=== PATIENT | male | born 1980 | race African-American/Black ===

== ENCOUNTER 2019-02-17 11:27 | Emergency (ER) | payer OTHER ==
[2019-02-17 11:41] VITALS: TEMP 98.4; BMI 45.1
[2019-02-17] MEDS ORDERED: ASPIRIN 81 MG CHEWABLE TABLETS PO ONE (13:16)
[2019-02-17] MEDS ORDERED: ASPIRIN 81 MG CHEWABLE TABLETS ONE (13:20)
[2019-02-17 13:40] LABS: BASO % 0.5 % (0-2.0); EOS % 2.3 % (0-4.5); HEMATOCRIT 44.9 % (35.4-49); HEMOGLOBIN 15.4 GM/dL (11.7-16.9); LYMPH % 44.3 % (8-40); MCHC 34.2 g/dl (32.0-35.9); MEAN CELL VOLUME 84.9 fl (80-96); MEAN PLT VOLUME 8.5 fl (7.5-11.1); MONO % 10.6 % (3.8-10.2); NEUT % 42.3 % (42.8-82.8); RBC 5.29 M/mm3 (4.00-5.60); RDW 14.5 % (11.9-15.9); WHITE BLOOD COUNT 6.1 K/mm3 (4.0-10.0)
[2019-02-17 13:53] LABS: PLATELET COUNT 247 K/MM3 (134-434)
[2019-02-17 13:59] LABS: ALBUMIN 4.2 g/dl (3.4-5.0); ALK PHOS 76 U/L (45-117); ANION GAP 9 MMOL/L (8-16); BILIRUBIN,TOTAL 0.6 mg/dL (0.2-1); BLOOD UREA NITROGEN 15.2 mg/dL (7-18); CALCIUM 9.1 mg/dL (8.5-10.1); CHLORIDE 101 mmol/L (98-107); CO2 33 mmol/L (21-32); CREATININE 1.3 mg/dL (0.55-1.3); GLUCOSE,RANDOM 84 mg/dL (74-106); POTASSIUM 3.1 mmol/L (3.5-5.1); SGOT/AST 30 U/L (15-37); SGPT/ALT 56 U/L (13-61); SODIUM 142 mmol/L (136-145)
--- NOTE | 2019-02-17 14:11 | PDOC ---
Documentation entered by Nadira Srinivasan SCRIBE, acting as scribe for Agusto Barboza MD. Agusto Barboza MD: This documentation has been prepared by the scribe, Nadira Srinivasan SCRIBE, under my direction and personally reviewed by me in its entirety. I confirm that the documentation accurately reflects all work, treatment, procedures, and medical decision making performed by me. History of Present Illness - General Chief Complaint: Chest Pain Stated Complaint: CHEST DISCOMFORT Time Seen by Provider: 02/17/19 12:20 History Source: Patient Exam Limitations: No Limitations - History of Present Illness Initial Comments: 02/17/19 13:39 The patient is a 38-year-old male, with a past medical history of HTN, who presents to the ED with chest pain that began this morning at 4:30 AM. The pain woke the patient up from his sleep. It is located in the midsternal region and he describes it as intermittent, sharp in sensation, nonradiating, nonpleuritic. This episode lasted for seconds and the patient was able to fall back to sleep. While on his way to [employer] at 8:45 AM he developed the pain again. The pain lasted for approximately 2 hours before resolving on its own, which prompted the patient to visit the ED. He reports that he recently began to walk more often and starting taking a swimming class, but denies feeling chest pain during those activities. He has never experienced this pain in the past. The patient denies fevers, chills, nausea, vomiting, diarrhea, or abdominal pain. Denies any palpitations or shortness of breath. Denies any weakness, dizziness, or changes in strength or sensation. Denies any lower extremity swelling or recent travel. Allergies: NKA Social History: Reports smoking 3 cigars per week and social drinking. Denies any drug use. Surgical History: None reported. Family History: Mother - prediabetic, father from renal failure, grandmother from an DE. PCP: Dr. Haris Rojas Past History - Past Medical History Allergies/Adverse Reactions: Allergies Allergy/AdvReac Type Severity Reaction Status Date / Time No Known Allergies Allergy Verified 02/17/19 11:41 Home Medications: Ambulatory Orders Amlodipine Besylate 10 mg PO DAILY 03/17/16 Hydrochlorothiazide [Hctz -] 25 mg PO DAILY 03/17/16 Metoprolol Tartrate [Lopressor] 0 mg PO DAILY 02/17/19 Potassium 0 mg PO 02/17/19 COPD: No HTN: Yes - Immunization History Td Vaccination: Yes TDAP Vaccination: Yes Immunization Up to Date: Yes - Suicide/Smoking/Psychosocial Hx Smoking History: Current some day smoker Have you smoked in the past 12 months: Yes Number of Cigarettes Smoked Daily: 0 Cigars Per Day: 1 Information on smoking cessation initiated: No Hx Alcohol Use: Yes Substance Use Type: None Review of Systems - Review of Systems Able to Perform ROS?: Yes Comments:: 02/17/19 13:40 CONSTITUTIONAL: No reported: Fever, Chills, Diaphoresis, Generalized Weakness, Malaise, Loss of Appetite HEENT: No reported: Rhinorrhea, Nasal Congestion, Throat Pain, Throat Swelling, Difficulty Swallowing, Mouth Swelling, Ear Pain, Eye Pain, Visual Changes CARDIOVASCULAR: (+)Chest pain. No reported: Syncope, Palpitations, Irregular Heart Rate, Lightheadedness, Peripheral Edema RESPIRATORY: No reported: Cough, Shortness of Breath, SOB with Exertion, Orthopnea, Wheezing , Stridor, Hemoptysis GASTROINTESTINAL: No reported: Abdominal pain, Abdominal Distension, Nausea, Vomiting, Diarrhea, Constipation, Melena, Hematochezia GENITOURINARY: No reported: Dysuria, Frequency, Urgency, Hesitancy, Flank Pain, Genital Pain MUSCULOSKELETAL: No reported: Myalgia, Arthralgia, Joint Swelling, Back pain, Neck Pain SKIN: No reported: Rash, Itching, Pallor HEMEATOLOGIC/IMMUNOLOGIC: No reported: Easy Bleeding, Easy Bruising, Lymphadenopathy, Frequent infections ENDOCRINE: No reported: Unexplained Weight Gain, Unexplained Weight Loss, Heat Intolerance , Cold Intolerance NEUROLOGIC: No reported: Headache, Focal Weakness, Paresthesias, Vertigo, Lightheadedness, Unsteady Gait, Seizure, Mental Status Changes, Incontinence PSYCHIATRIC: No reported: Anxiety, Depression *Physical Exam - Vital Signs Last Vital Signs Temp Pulse Resp BP Pulse Ox 98.4 F 74 18 134/85 98 02/17/19 11:38 02/17/19 12:50 02/17/19 12:50 02/17/19 12:50 02/17/19 12:50 - Physical Exam Comments: 02/17/19 13:40 GENERAL: (+)Obese. The patient is awake, alert, and fully oriented, Nontoxic - in no acute distress. HEAD: Normocephalic, atraumatic. EYES: extraocular movements intact, sclera anicteric, conjunctiva clear. ENT: Normal voice, Moist mucous membranes. NECK: Normal range of motion, supple LUNGS: Breath sounds equal, clear to auscultation bilaterally. No wheezes, no rhonchi, no rales. HEART: Regular rate and rhythm, without murmur, rub or gallop. ABDOMEN: Soft, nontender, No guarding, no rebound.No CVA tenderness EXTREMITIES: Normal range of motion, no edema. No cyanosis. No erythema, or tenderness. NEUROLOGICAL: No facial assymetry, Normal speech, PSYCH: Normal mood, normal affect. SKIN: Warm, Dry, normal turgor. Heart Score/ECG Review - ECG Impressions Comment:: 02/17/19 13:25 Twelve-lead EKG was performed and reviewed by me. There is normal sinus rhythm with a normal rate. rate of 66 left axis deviation nonspecific [facility] ED Treatment Course - LABORATORY CBC & Chemistry Diagram: 02/17/19 13:19 02/17/19 13:19 - ADDITIONAL ORDERS Additional order review: Laboratory Results 02/17/19 13:19 Sodium 142 Potassium 3.1 L Chloride 101 Carbon Dioxide 33 H Anion Gap 9 BUN 15.2 Creatinine 1.3 Est GFR (CKD-EPI)AfAm 81.36 Est GFR (CKD-EPI)NonAf 70.20 Random Glucose 84 Calcium 9.1 Total Bilirubin 0.6 AST 30 ALT 56 Alkaline Phosphatase 76 Creatine Kinase 397 H Creatine Kinase Index 0.7 CK-MB (CK-2) 2.8 Troponin I < 0.02 Total Protein 8.0 Albumin 4.2 02/17/19 13:19 RBC 5.29 MCV 84.9 MCHC 34.2 RDW 14.5 MPV 8.5 Neutrophils % 42.3 L Lymphocytes % 44.3 H Monocytes % 10.6 H Eosinophils % 2.3 Basophils % 0.5 - RADIOLOGY Radiology Studies Ordered: Category Date Time Status CHEST PA & LAT [RAD] Stat Radiology 02/17/19 13:16 Completed - Medications Given in the ED: ED Medications Discontinued Medications Generic Name Dose Route Start Last Admin Trade Name Freq PRN Reason Stop Dose Admin Aspirin 162 mg 02/17/19 13:16 02/17/19 13:23 Asa - PO 02/17/19 13:17 162 mg ONCE ONE Administration Medical Decision Making - Medical Decision Making 02/17/19 13:17 38y M hx htn presents with a complaint of intermittent chest pain since this morning, patient states initially his pain was sharp, lasting for split-second none resolving and then became an and treatment pressure-like sensation in his mid chest that is intermittent, without associated, nausea, vomiting, diaphoresis, shortness of breath, dyspnea on exertion, abdominal pain, back pain , numbness, tingling, weakness, leg swelling, calf pain, hemoptysis. he patient denies any worsening of his symptoms on exertion, states that he has been walking and swimming regularly and has not had any associated chest pain. No known cardiac history. Social: occasional cigar smoking and social alcohol PMD: Androne - consider ACS however symptoms are atypical, will obtain chest x-ray to screen for acute pulmonary pathology including pneumonia, pneumothorax we'll screen for ACS with troponin, EKG will give ASA A portion of this note was documented by scribe services under my direction. I have reviewed the details of the note, within reason, and agree with the documentation with the following case summary and management plan written by me 02/17/19 14:34 the patient is feeling improved, the patient's blood work is unremarkable we'll obtain a repeat troponin. based on the nature of thispain that is intermittent, sharp - sitter possible muscular skeletal versus esophageal spasm wli lgive some motrin *DC/Admit/Observation/Transfer Diagnosis at time of Disposition: Chest pain Qualifiers: Chest pain type: unspecified Qualified Code(s): R07.9 - Chest pain, unspecified - Discharge Dispostion Disposition: HOME Condition at time of disposition: Improved Decision to Admit order: No - Referrals Referrals: Haris Rojas MD [Primary Care Provider] - - Patient Instructions Printed Discharge Instructions: DI for Atypical Chest Pain Additional Instructions: Return to the emergency department immediately with ANY new, persistent or worsening symptoms. You MUST call and follow up with your doctor in 2-3 days for further evaluation of your symptoms. Results were discussed with you. Please make sure your doctor reviews the results of your emergency evaluation. Your Emergency Department visit is not complete without a follow up with your doctor. If you had any xrays during your visit, it was read preliminarily by myself, a Radiologist will review it and if there are any additional findings we will call you. - Post Discharge Activity
[2019-02-17] MEDS ORDERED: IBUPROFEN 400 MG TABLET (FP) PO ONE (14:34)
[2019-02-17] MEDS ORDERED: IBUPROFEN 600 MG TABLET (FP) PO ONE (14:48)
[2019-02-17 15:02] VITALS: BP 128/93; PULSE 68
--- NOTE | 2019-02-17 15:28 | EKG ---
Test Reason : Blood Pressure : / mmHG Vent. Rate : 066 BPM Atrial Rate : 066 BPM P-R Int : 168 ms QRS Dur : 098 ms QT Int : 428 ms P-R-T Axes : 035 -41 -07 degrees QTc Int : 448 ms NORMAL SINUS RHYTHM POSSIBLE LEFT ATRIAL ENLARGEMENT LEFT AXIS DEVIATION PULMONARY DISEASE PATTERN INCOMPLETE RIGHT BUNDLE BRANCH BLOCK LEFT VENTRICULAR HYPERTROPHY NONSPECIFIC T WAVE ABNORMALITY ABNORMAL ECG WHEN COMPARED WITH ECG OF 17-MAR-2016 08:11, NONSPECIFIC T WAVE ABNORMALITY NOW EVIDENT IN ANTERIOR LEADS Confirmed by KENAN HERNADEZ, LADONNA ([id number]) on 02/17/2019 3:28:09 PM Referred By: Confirmed By:LADONNA GRAYSON MD
== END 2019-02-17 16:31 | disposition home or self-care (01) ==
LOC: JER 11:27
DX: R07.9 Chest pain, unspecified (principal); I10 Essential (primary) hypertension
CPT/HCPCS: 36415; 71046-TC-FY; 80053; 82550; 82553; 84484; 85025; 93005; 93010; 99285-25